=== PATIENT | female | born 1995 | race Caucasian/White ===

== ENCOUNTER 2016-10-16 09:09 | Emergency (ER) | payer OTHER ==
[~2016-10-16] VITALS: Ht 160 cm; Wt 99.8 kg
[2016-10-16 10:14] VITALS: BP 131/89
== END 2016-10-16 12:14 | disposition home or self-care (01) ==
LOC: ER 09:09
DX: Z30.433 Encounter for removal and reinsertion of intrauterine contraceptive device (principal); Z88.0 Allergy status to penicillin
CPT/HCPCS: 76830; 76856; 81025